=== PATIENT | female | born 1990 | race Caucasian/White ===

== ENCOUNTER 2020-07-28 05:13 | Emergency (ER) | payer OTHER, SELFPAY ==
[2020-07-28 05:19] VITALS: BP 144/69; PULSE 107; RESP 20; TEMP 36.6; O2SAT 97; BMI 26.8
[2020-07-28 05:31] VITALS: BP 118/64; PULSE 955; RESP 16; TEMP 36.7; O2SAT 96
--- NOTE | 2020-07-28 05:41 | ED_ITS ---
HPI - Asthma General Chief Complaint: Asthma Stated Complaint: Sob Time Seen by Provider: 07/28/20 05:39 Source: patient Mode of arrival: ambulatory History of Present Illness HPI Narrative: 30-year-old female with history and clinical presentation consistent with worsening shortness of breath over the past 2-3 days without associated fevers, chills, cough, chest pain, GI symptoms, or symptoms. Patient states that she is an asthmatic but cannot recall the last time that she had an asthma exacerbation. She has been using her albuterol consistently every 4-6 hours for the past 2 days, but states that she can take it any longer bec ause her chest was feeling so tight. Related Data Previous Rx's Medication Instructions Recorded atenolol 25 mg tablet 25 mg PO DAILY 90 Days #90 tab 03/04/20 prednisone 40 mg PO DAILY 4 Days #8 tab 07/28/20 Allergies Allergy/AdvReac Type Severity Reaction Status Date / Time No Known Allergies Allergy Unverified 12/21/19 16:07 Review of Systems Review of Systems: Pertinent positives and negatives as stated in HPI 10 point review systems is otherwise negative. PMFSH Past Medical History Source: nursing notes reviewed Medical History Asthma HTN (hypertension) Social History Social History Alcohol intake: current Alcohol intake frequency: a few times a week Alcohol type: hard liquor Smoking Status: Current every day smoker Use of substances other than those prescribed or required for medical reasons: No Advance Directives: No Physical Exam Vital Signs: Vital Signs: Last Vital Signs Temp 98.0 F 07/28/20 05:31 Pulse 955 H 07/28/20 05:31 Resp 16 07/28/20 05:31 BP 118/64 07/28/20 05:31 Pulse Ox 96 07/28/20 05:31 Body Mass Index 26.8 VITAL SIGNS: Reviewed. GENERAL: Well developed, well nourished, in no acute distress. HEAD: Normocephalic/atraumatic EYES: PERRLA, EOMI OROPHARYNX: no oral lesions noted, posterior pharynx clear NECK: Supple, no adenopathy LUNGS: Decreased air movement bilaterally with mild wheezing. SpO2<96> CARDIOVASCULAR: Regular rate and rhythm without noted murmurs ABDOMEN: Soft, non-tender, non-distended with bowel sounds. NEUROLOGIC: Alert and oriented x 4. Course Course Course Narrative: 30-year-old female with history and clinical presentation consistent with asthma exacerbation, will rule out pneumonia. Review of all investigations negative for any acute findings and patient received hour long albuterol treatment with Solu-Medrol and on re-evaluations states significant improvement in her breathing status. On auscultation patient now with good air movement and no wheezing noted. Patient was discharged in stable condition with a short course of steroids. MDM - Asthma Lab Data Result diagrams: 07/28/20 05:55 07/28/20 05:55 Labs: Lab Results 07/28/20 07/28/20 07/28/20 Range/Units 05:55 05:55 05:55 WBC 6.6 (4.8-10.8) X10*3/uL RBC 4.08 L (4.20-5.50) X10*6/uL Hgb 13.4 (12.0-16.0) g/dl Hct 38.4 (37-47) % MCV 94.1 (80-98) fL MCH 32.8 (27.0-33.0) pg MCHC 34.9 (31.0-35.0) g/dl RDW 12.2 (11.0-16.0) % Plt Count 232 (160-400) X10*3/uL MPV 9.7 (9.4-12.3) fL Immature Gran % (Auto) 0.2 (0.0-0.4) % Neut % (Auto) 43.1 L (45-73) % Lymph % (Auto) 37.6 (20-40) % [place] % (Auto) 7.4 (2-11) % Eos % (Auto) 10.3 H (0-4) % Baso % (Auto) 1.4 (0-2) % Lymph # (Auto) 2.5 (1.2-4.9) X10*3/uL [place] # (Auto) 0.5 (0.1-1.2) X10*3/uL Eos # (Auto) 0.7 H (0.0-0.4) X10*3/uL Baso # (Auto) 0.1 (0.0-0.2) X10*3/uL Abs Immat Gran (auto) 0.01 (0.00-0.03) X10*3/uL Absolute Neuts (auto) 2.8 (2.0-8.3) X10*3/uL Absolute Nucleated RBC 0.000 (0.0-0.012) X10*3/uL Nucleated RBC % (auto) 0.0 (0.0-0.2) /100WBC Sodium 137 (135-145) mmol/L Potassium 4.1 (3.3-5.1) mmol/L Chloride 108 (96-108) mmol/L Carbon Dioxide 21 L (22-29) mmol/L Anion Gap 12 (12-20) BUN 15 (9-16) mg/dL Creatinine 0.74 (0.5-1.4) mg/dL Estim Creat Clear Calc 96.4 Estimated GFR > 60 Random Glucose 115 (60-115) mg/dL Calcium 8.5 (8.4-10.2) mg/dL Total Bilirubin 0.4 (0.0-1.0) mg/dL AST 17 (5-31) U/L ALT 11 (0-31) U/L Alkaline Phosphatase 73 (39-117) U/L Total Protein 6.0 L (6.5-8.0) g/dL Albumin 3.9 (3.5-5.0) g/dL Urine Color Urine Appearance Urine pH (5.0-8.0) Ur Specific [place] (1.005-1.025) Urine Protein (NEG-TRACE) MG/DL Urine Glucose (UA) (NEG) MG/DL Urine Ketones (NEG) MG/DL Urine Blood (NEG) Urine Nitrite (NEG) Ur Leukocyte Esterase (NEG) Urine Test (NEGATIVE) COVID-19 (STEPHANIE) Negative (Negative) COVID-19 Clin Com See Note 07/28/20 07/28/20 Range/Units 05:55 05:55 WBC (4.8-10.8) X10*3/uL RBC (4.20-5.50) X10*6/uL Hgb (12.0-16.0) g/dl Hct (37-47) % MCV (80-98) fL MCH (27.0-33.0) pg MCHC (31.0-35.0) g/dl RDW (11.0-16.0) % Plt Count (160-400) X10*3/uL MPV (9.4-12.3) fL Immature Gran % (Auto) (0.0-0.4) % Neut % (Auto) (45-73) % Lymph % (Auto) (20-40) % [place] % (Auto) (2-11) % Eos % (Auto) (0-4) % Baso % (Auto) (0-2) % Lymph # (Auto) (1.2-4.9) X10*3/uL [place] # (Auto) (0.1-1.2) X10*3/uL Eos # (Auto) (0.0-0.4) X10*3/uL Baso # (Auto) (0.0-0.2) X10*3/uL Abs Immat Gran (auto) (0.00-0.03) X10*3/uL Absolute Neuts (auto) (2.0-8.3) X10*3/uL Absolute Nucleated RBC (0.0-0.012) X10*3/uL Nucleated RBC % (auto) (0.0-0.2) /100WBC Sodium (135-145) mmol/L Potassium (3.3-5.1) mmol/L Chloride (96-108) mmol/L Carbon Dioxide (22-29) mmol/L Anion Gap (12-20) BUN (9-16) mg/dL Creatinine (0.5-1.4) mg/dL Estim Creat Clear Calc Estimated GFR Random Glucose (60-115) mg/dL Calcium (8.4-10.2) mg/dL Total Bilirubin (0.0-1.0) mg/dL AST (5-31) U/L ALT (0-31) U/L Alkaline Phosphatase (39-117) U/L Total Protein (6.5-8.0) g/dL Albumin (3.5-5.0) g/dL Urine Color DARK YELLOW Urine Appearance CLEAR Urine pH 5.5 (5.0-8.0) Ur Specific [place] >= 1.030 H (1.005-1.025) Urine Protein NEG (NEG-TRACE) MG/DL Urine Glucose (UA) NEG (NEG) MG/DL Urine Ketones NEG (NEG) MG/DL Urine Blood NEG (NEG) Urine Nitrite NEG (NEG) Ur Leukocyte Esterase NEG (NEG) Urine Test NEGATIVE (NEGATIVE) COVID-19 (STEPHANIE) (Negative) COVID-19 Clin Com Discharge Plan Discharge Clinical Impression: Asthma with acute exacerbation Patient Disposition: Home, Self-Care Instructions: Asthma (ED) Additional Instructions: Return to the emergency room if you experience any acute worsening of your symptoms. You should follow-up with your primary care provider in the next 2-3 days for of re-evaluation Prescriptions: New prednisone 20 mg tablet 40 mg PO DAILY 4 Days Qty: 8 RF: 0 No Action atenolol 25 mg tablet 25 mg PO DAILY 90 Days Qty: 90 RF: 1
[2020-07-28] MEDS: methylPREDNISolone Sod Succ 125 MG/2 ML VIAL IVPUSH (05:54)
[2020-07-28] MEDS: Albuterol Sulfate (0.083%) 2.5 MG/3 ML VIAL.NEB 5 MG INHALE (05:59)
[2020-07-28 06:00] LABS: MANUAL DIFF FLAG NO
[2020-07-28 06:01] LABS: Basophils Absolute Auto 0.1 X10*3/uL (0.0-0.2); Basophils Percent Auto 1.4 % (0-2); Eosinophils Absolute Auto 0.7 X10*3/uL (0.0-0.4); Eosinophils Percent Auto 10.3 % (0-4); Hematocrit 38.4 % (37-47); Hemoglobin 13.4 g/dl (12.0-16.0); Imm Gran Abs Auto 0.01 X10*3/uL (0.00-0.03); Imm Gran Pct Auto 0.2 % (0.0-0.4); Lymphocytes Absolute Auto 2.5 X10*3/uL (1.2-4.9); Lymphocytes Percent Auto 37.6 % (20-40); Mean Corpuscular HGB Conc 34.9 g/dl (31.0-35.0); Mean Corpuscular Hemoglobin 32.8 pg (27.0-33.0); Mean Corpuscular Volume 94.1 fL (80-98); Mean Platelet Volume 9.7 fL (9.4-12.3); Monocytes Absolute Auto 0.5 X10*3/uL (0.1-1.2); Monocytes Percent Auto 7.4 % (2-11); Neutrophils Absolute Auto 2.8 X10*3/uL (2.0-8.3); Neutrophils Percent Auto 43.1 % (45-73); Platelet Count 232 X10*3/uL (160-400); Red Blood Count 4.08 X10*6/uL (4.20-5.50); Red Cell Distribution Width 12.2 % (11.0-16.0); White Blood Count 6.6 X10*3/uL (4.8-10.8)
[2020-07-28 06:07] LABS: Glucose Urine UA NEG (NEG); Leukocyte Esterase Urine NEG (NEG); Nitrite Urine NEG (NEG); PH 5.5 (5.0-8.0); Specific Gravity - Urine >= 1.030 (1.005-1.025); Urine Blood NEG (NEG); Urine Ketones NEG (NEG); Urine Protein NEG (NEG-TRACE)
[2020-07-28 06:12] LABS: Appearance Urine CLEAR; Color Urine DARK YELLOW
[2020-07-28 06:13] LABS: UPreg QC Valid YES; Urine Pregnancy NEGATIVE (NEGATIVE)
[2020-07-28 06:16] LABS: COVID-19 Test Negative (Negative); IDNOW Serial# 9DD0AD1C
[2020-07-28 06:29] LABS: Alanine Aminotransferase 11 U/L (0-31); Albumin Level 3.9 g/dL (3.5-5.0); Alkaline Phosphatase 73 U/L (39-117); Anion Gap 12 (12-20); Aspartate Amino Transferase 17 U/L (5-31); Bilirubin Total 0.4 mg/dL (0.0-1.0); Blood Urea Nitrogen 15 mg/dL (9-16); Calcium 8.5 mg/dL (8.4-10.2); Carbon Dioxide 21 mmol/L (22-29); Chloride 108 mmol/L (96-108); Creatinine Clr Calc Pharmacy 96.4; Estimated Glomerular Filt Rate > 60; Glucose Random 115 mg/dL (60-115); Potassium 4.1 mmol/L (3.3-5.1); Sodium 137 mmol/L (135-145)
== END 2020-07-28 07:27 | disposition home or self-care (01) ==
PROVIDERS: Emergency Provider Student in an Organized Health Care Education/Training Program; PCP Nurse Practitioner Family
DX: J45.901 Unspecified asthma with (acute) exacerbation (principal); R06.02 Shortness of breath; F17.200 Nicotine dependence, unspecified, uncomplicated; Z20.822 Contact with and (suspected) exposure to COVID-19; Z71.6 Tobacco abuse counseling; Z79.899 Other long term (current) drug therapy
CPT/HCPCS: 36415; 80053; 81003; 81025; 85025; 87635; 96374; 99284; 99285; J2930

== ENCOUNTER 2020-10-24 01:25 | Emergency (ER) | payer OTHER, SELFPAY ==
[2020-10-24 01:44] VITALS: BP 114/74; PULSE 93; RESP 16; TEMP 36.9; O2SAT 97; BMI 28.3
--- NOTE | 2020-10-24 01:44 | ED_ITS ---
HPI - URI/Sore Throat General Chief Complaint: Upper Respiratory Symptoms Stated Complaint: cough/SOB Time Seen by Provider: 10/24/20 01:44 Source: patient Mode of arrival: ambulatory Limitations: no limitations History of Present Illness HPI Narrative: Patient is smoker with history of chronic bronchitis uses inhaler been coughing for last 3 days feel congested cough is mostly dry no fever no chills feels sore throat Related Data Previous Rx's Medication Instructions Recorded prednisone 40 mg PO DAILY 4 Days #8 tab 07/28/20 atenolol 25 mg tablet 25 mg PO DAILY 90 Days #90 tab 09/16/20 amoxicillin-pot clavulanate 1 tab PO BID #20 tab 10/24/20 [Augmentin] codeine-guaifenesin 10 ml PO Q4-6H PRN #237 ml 10/24/20 prednisone 40 mg PO DAILY #10 tab 10/24/20 Allergies Allergy/AdvReac Type Severity Reaction Status Date / Time No Known Allergies Allergy Unverified 12/21/19 16:07 Review of Systems Review of Systems: Yes all other systems are reviewed and are negative [facility] Past Medical History Medical History Asthma HTN (hypertension) Social History Social History Alcohol intake: current Alcohol intake frequency: a few times a week Alcohol type: hard liquor Advance Directives: No Advance Directives Information Provided: Yes Patient : No Physical Exam Vital Signs: Vital Signs: Last Vital Signs Temp 98.5 F 10/24/20 01:44 Pulse 93 10/24/20 01:44 Resp 16 10/24/20 01:44 BP 114/74 10/24/20 01:44 Pulse Ox 97 10/24/20 01:44 Body Mass Index 28.3 Const: General: comfortable and no acute distress Orientation/consciousness: patient oriented x3 HENMT: Head: Yes normocephalic and Yes atraumatic Ears: hearing grossly normal bilaterally General nose exam: Nasal discharge present clear Face and sinus: Yes sinuses nontender Mouth: Normal oral and palatal mucosa present Teeth and gingiva: dentition normal Throat: Yes posterior oropharynx normal Eyes: General: appearance normal, both eyes and all related structures Neck: Neck: Yes normal visual inspection Resp: Effort & Inspection: normal respiratory effort Auscultation: clear to auscultation bilaterally Cardio: Palpation: normal PMI Rate: regular rate Rhythm: regular rhythm Heart sounds: S1 normal heart sound present and S2 normal heart sound present GI: Inspection: Yes normal to inspection Palpation (GI): Soft to palpation and nontender Skin: General skin exam: no rashes or lesions noted Neuro: General: patient oriented x3 Extrem: General: Yes normal to inspection and Yes no pedal edema Discharge Plan Discharge Clinical Impression: Bronchitis Patient Disposition: Home, Self-Care Instructions: Acute Bronchitis (ED) Additional Instructions: Continue to use inhaler every 4-6 hours as advised. Take antibiotics and prednisone as prescribed. Follow with PCP if not better Prescriptions: New codeine-guaifenesin 10-100 mg/5 mL liquid 10 ml PO Q4-6H PRN (Reason: cough) Qty: 237 RF: 0 amoxicillin-pot clavulanate [Augmentin] 875-125 mg tablet 1 tab PO BID Qty: 20 RF: 0 prednisone 20 mg tablet 40 mg PO DAILY Qty: 10 RF: 0 No Action atenolol 25 mg tablet 25 mg PO DAILY 90 Days Qty: 90 RF: 0 prednisone 20 mg tablet 40 mg PO DAILY 4 Days Qty: 8 RF: 0 Interventions: ED Discharge Assessment Last Done: 10/24/20 02:22 Discharge Date/Time: 10/24/20 02:23
[2020-10-24] MEDS: Amoxicillin/Potassium Clav 875 MG TABLET PO (02:16)
[2020-10-24] MEDS: Benzonatate 100 MG CAPSULE 200 MG PO (02:17)
[2020-10-24] MEDS: predniSONE 20 MG TABLET 40 MG PO (02:17)
== END 2020-10-24 02:23 | disposition home or self-care (01) ==
PROVIDERS: Emergency Provider Internal Medicine; PCP Nurse Practitioner Family
DX: J40 Bronchitis, not specified as acute or chronic (principal); I10 Essential (primary) hypertension
CPT/HCPCS: 99283

== ENCOUNTER 2021-06-10 07:58 | Outpatient (REF) | payer OTHER, SELFPAY ==
[2021-06-10 11:46] LABS: Appearance Urine CLOUDY; Color Urine YELLOW; Glucose Urine UA NEG (NEG); Leukocyte Esterase Urine NEG (NEG); Nitrite Urine NEG (NEG); UACC Culture Trigger NO; Urine Blood 2+ (NEG); Urine Ketones NEG (NEG); Urine Protein NEG (NEG-TRACE)
[2021-06-10 11:54] LABS: Alanine Aminotransferase 19 U/L (0-31); Alkaline Phosphatase 77 U/L (39-117); Anion Gap 11 (12-20); Aspartate Amino Transferase 16 U/L (5-31); Bilirubin Total 0.4 mg/dL (0.0-1.0); Blood Urea Nitrogen 10 mg/dL (9-16); Carbon Dioxide 24 mmol/L (22-29); Chloride 108 mmol/L (96-108); Cholesterol 140 mg/dL; Estimated Glomerular Filt Rate > 60; Glucose Fasting 122 mg/dL (60-99); HDL Cholesterol 48 mg/dL; LDL Cholesterol Calculated 81 mg/dl; Potassium 4.3 mmol/L (3.3-5.1); Sodium 139 mmol/L (135-145); Total Protein 6.3 g/dL (6.5-8.0); Triglycerides 57 mg/dL
[2021-06-10 11:59] LABS: Bacteria Urine 3+ /LPF; Squamous Epithelial Cell Urine 4+ /LPF
[2021-06-10 12:17] LABS: TSH reflex Free T4 2.44 uIU/mL (0.32-4.0)
[2021-06-10 12:24] LABS: HBS Num1 19.68 mIU/mL (0-7.99); HBc Num1 0.13 S/CO (0.00-0.79); Hepatitis B Core Antibody Nonreactive (Nonreactive); ~HepC Num1 0.06 S/CO (0.00-0.79); ~Hepatitis B Surface Antibody REACTIVE (Nonreactive); ~Hepatitis C Antibody Nonreactive (Nonreactive)
[2021-06-10 12:34] LABS: HBsAGNum1 0.24 S/CO (0.00-0.99); Hepatitis B Surface Antigen Negative (Negative)
[2021-06-13 08:55] LABS: Hepatitis A Antibody IgM 0.17 Index (0-0.79); ~Hepatitis A Antibody IgM Nonreactive (Nonreactive)
== END 2021-06-10 07:59 | disposition home or self-care (01) ==
LOC: HO.HMGCLDS 07:58
PROVIDERS: PCP Nurse Practitioner Family; Visit Provider Nurse Practitioner Family
DX: Z00.00 Encounter for general adult medical examination without abnormal findings (principal); Z11.59 Encounter for screening for other viral diseases
CPT/HCPCS: 36415; 80053; 80061; 81001; 84443; 86704; 86706; 86709; 86803; 87340

== ENCOUNTER 2021-08-25 08:33 | Emergency (ER) | payer OTHER, SELFPAY ==
[2021-08-25 08:37] VITALS: BP 125/83; PULSE 85; RESP 18; TEMP 36.9; O2SAT 99; BMI 25.4
[2021-08-25 08:52] LABS: Appearance Urine TURBID; Glucose Urine UA NEG (NEG); Leukocyte Esterase Urine 3+ (NEG); Nitrite Urine POS (NEG); PH 6.5 (5.0-8.0); Specific Gravity - Urine 1.025 (1.005-1.025); UACC Culture Trigger YES; Urine Blood 3+ (NEG); Urine Ketones 15 MG/DL (NEG); Urine Protein 3+ MG/DL (NEG-TRACE)
[2021-08-25 09:08] LABS: Color Urine RED
[2021-08-25 09:13] LABS: Bacteria Urine TRACE /LPF; RBC Urine TNTC /HPF (0); Squamous Epithelial Cell Urine TRACE /LPF
[2021-08-25] MEDS: Nitrofurantoin Monohyd/M-Cryst 100 MG CAPSULE PO (09:39)
--- NOTE | 2021-08-25 09:43 | ED.FEMALEGU ---
HPI - Female Genitourinary General Chief complaint: Urogenital-Female Stated complaint: uti, spotting Time Seen by Provider: 08/25/21 09:15 History of Present Illness HPI Narrative: Patient complains of 1 day of burning with urination as well as bloody urine, she says it is not vaginal bleeding but blood in the urine, there is no back pain no abdominal pain no fever no nausea vomiting or diarrhea Related Data Home Medications Medication Instructions Recorded Confirmed dextroamphetamine-amphetamine 20 20 mg PO BID 04/22/21 04/22/21 mg tablet (Adderall) Previous Rx's Medication Instructions Recorded mupirocin 2 % topical ointment 1 appl TOPICAL BID 30 Days #22 g 04/22/21 atenolol 25 mg tablet 25 mg PO DAILY 90 Days #90 tab 08/25/21 nitrofurantoin 100 mg PO Q12H 5 Days #10 cap 08/25/21 monohydrate/macrocrystals 100 mg capsule (Macrobid) phenazopyridine 200 mg tablet 200 mg PO TID PRN #6 tab 08/25/21 (Pyridium) Allergies Allergy/AdvReac Type Severity Reaction Status Date / Time No Known Allergies Allergy Verified 04/22/21 13:14 Review of Systems Review of Systems: No fever no chills no dizziness no weakness no chest pain no shortness of breath no abdominal pain no nausea no vomiting no flank pain or back pain no leg swelling no skin rash, no bleeding from mouth or gums, no blood in the stool Yes all other systems are reviewed and are negative PMFSH Past Medical History Source: nursing notes reviewed Medical History Asthma HTN (hypertension) Social History Social History Housing: Apartment Alcohol intake: current Alcohol intake frequency: a few times a week Alcohol type: hard liquor Patient Tobacco Use Status: Current everyday Tobacco user Tobacco use type: Cigarette Cigarette Packs Per Day: 0.3 Cigarettes Per Day: 3 Years Smoked: 15 e-Cigarette/Vaping Use: Currently Using Advance Directives: No Advance Directives Information Provided: No service: No Current occupational status: employed Current occupation: [employer] Cognitive needs: No Hearing needs: No Vision needs: No Physical Exam Vital Signs: Vital Signs: Last Vital Signs Temp 98.4 F 08/25/21 08:37 Pulse 85 08/25/21 08:37 Resp 18 08/25/21 08:37 BP 125/83 08/25/21 08:37 Pulse Ox 99 08/25/21 08:37 BMI result Body Mass Index 25.4 General appearance comfortable no distress Eyes anicteric no pallor The neck is supple Respiratory no distress Abdomen is soft nontender The back there is no CVA tenderness or flank tenderness Extremities there is no pedal edema Skin no rash no petechiae no purpura Course Course Course Narrative: Patient with dysuria associated with blood in the urine had a UA which was positive for nitrites and leukocyte esterase and bacteria so likely UTI She was concerned about the volume of blood so blood work was done and there was no evidence of anemia, platelets were normal renal function was normal and well-appearing patient was discharged with diagnosis of UTI MDM - Female Genitourinary Lab Data Attestation: I reviewed the patient's lab results. Result diagrams: 08/25/21 10:00 08/25/21 10:00 Labs: Lab Results 08/25/21 08/25/21 08/25/21 Range/Units 08:45 09:41 10:00 WBC 14.8 H (4.8-10.8) X10*3/uL RBC 4.49 (4.20-5.50) X10*6/uL Hgb 15.3 (12.0-16.0) g/dl Hct 44.1 (37.0-47.0) % MCV 98.2 H (80.0-98.0) fL MCH 34.1 H (27.0-33.0) pg MCHC 34.7 (31.0-35.0) g/dl RDW 12.6 (11.0-16.0) % Plt Count 269 (160-400) X10*3/uL MPV 10.2 (9.4-12.3) fL Immature Gran % (Auto) 0.3 (0.0-0.4) % Neut % (Auto) 78.8 H (45-73) % Lymph % (Auto) 12.7 L (20-40) % [place] % (Auto) 6.6 (2-11) % Eos % (Auto) 1.2 (0-4) % Baso % (Auto) 0.4 (0-2) % Lymph # (Auto) 1.9 (1.2-4.9) X10*3/uL [place] # (Auto) 1.0 (0.1-1.2) X10*3/uL Eos # (Auto) 0.2 (0.0-0.4) X10*3/uL Baso # (Auto) 0.1 (0.0-0.2) X10*3/uL Abs Immat Gran (auto) 0.05 H (0.00-0.03) X10*3/uL Absolute Neuts (auto) 11.6 H (2.0-8.3) x10*3/uL Absolute Nucleated RBC 0.000 (0.0-0.012) X10*3/uL Nucleated RBC % (auto) 0.0 (0.0-0.2) /100WBC PT (9.9-13.0) SEC INR (0.9-1.1) Sodium (135-145) mmol/L Potassium (3.3-5.1) mmol/L Chloride (96-108) mmol/L Carbon Dioxide (22-29) mmol/L Anion Gap (12-20) BUN (9-16) mg/dL Creatinine (0.5-1.4) mg/dL Estim Creat Clear Calc Estimated GFR Random Glucose (60-115) mg/dL Calcium (8.4-10.2) mg/dL Urine Color RED A Urine Appearance TURBID Urine pH 6.5 (5.0-8.0) Ur Specific [place] 1.025 (1.005-1.025) Urine Protein 3+ H (NEG-TRACE) MG/DL Urine Glucose (UA) NEG (NEG) MG/DL Urine Ketones 15 (NEG) MG/DL Urine Blood 3+ H (NEG) Urine Nitrite POS H (NEG) Ur Leukocyte Esterase 3+ H (NEG) Urine RBC TNTC H (0) /HPF Urine WBC 15-29 H (0-4) /HPF Ur Squamous Epith Cells TRACE /LPF Urine Bacteria TRACE /LPF Urine Test NEGATIVE (NEGATIVE) 08/25/21 08/25/21 Range/Units 10:00 10:00 WBC (4.8-10.8) X10*3/uL RBC (4.20-5.50) X10*6/uL Hgb (12.0-16.0) g/dl Hct (37.0-47.0) % MCV (80.0-98.0) fL MCH (27.0-33.0) pg MCHC (31.0-35.0) g/dl RDW (11.0-16.0) % Plt Count (160-400) X10*3/uL MPV (9.4-12.3) fL Immature Gran % (Auto) (0.0-0.4) % Neut % (Auto) (45-73) % Lymph % (Auto) (20-40) % [place] % (Auto) (2-11) % Eos % (Auto) (0-4) % Baso % (Auto) (0-2) % Lymph # (Auto) (1.2-4.9) X10*3/uL [place] # (Auto) (0.1-1.2) X10*3/uL Eos # (Auto) (0.0-0.4) X10*3/uL Baso # (Auto) (0.0-0.2) X10*3/uL Abs Immat Gran (auto) (0.00-0.03) X10*3/uL Absolute Neuts (auto) (2.0-8.3) x10*3/uL Absolute Nucleated RBC (0.0-0.012) X10*3/uL Nucleated RBC % (auto) (0.0-0.2) /100WBC PT 12.8 (9.9-13.0) SEC INR 1.1 (0.9-1.1) Sodium 138 (135-145) mmol/L Potassium 4.5 (3.3-5.1) mmol/L Chloride 106 (96-108) mmol/L Carbon Dioxide 26 (22-29) mmol/L Anion Gap 11 L (12-20) BUN 9 (9-16) mg/dL Creatinine 0.78 (0.5-1.4) mg/dL Estim Creat Clear Calc 84.7 Estimated GFR > 60 Random Glucose 115 (60-115) mg/dL Calcium 9.6 D (8.4-10.2) mg/dL Urine Color Urine Appearance Urine pH (5.0-8.0) Ur Specific Bryant (1.005-1.025) Urine Protein (NEG-TRACE) MG/DL Urine Glucose (UA) (NEG) MG/DL Urine Ketones (NEG) MG/DL Urine Blood (NEG) Urine Nitrite (NEG) Ur Leukocyte Esterase (NEG) Urine RBC (0) /HPF Urine WBC (0-4) /HPF Ur Squamous Epith Cells /LPF Urine Bacteria /LPF Urine Test (NEGATIVE) Discharge Plan Discharge Clinical Impression: Urinary tract infection Patient Disposition: Home, Self-Care Additional Instructions: The blood in your urine is most likely from infection, are urinalysis did show a urinary tract infection The other blood tests showed you are not anemic and did not show any abnormality in her kidney function, no evidence of any problem clotting Take antibiotic as directed drink plenty of water Return any time for vomiting fever abdominal pain flank pain or back pain any worse condition or any concerns Prescriptions: New nitrofurantoin monohyd/m-cryst [Macrobid] 100 mg capsule 100 mg PO Q12H 5 Days Qty: 10 0RF Rx Instructions: must administer with a meal/food phenazopyridine [Pyridium] 200 mg tablet 200 mg PO TID PRN (Reason: Pain with urination) Qty: 6 0RF No Action atenolol 25 mg tablet 25 mg PO DAILY 90 Days Qty: 90 0RF dextroamphetamine-amphetamine [Adderall] 20 mg tablet 20 mg PO BID 0RF Rx Instructions: administer doses at least 4-6 hours apart mupirocin 2 % ointment 1 appl topical BID 30 Days Qty: 22 3RF
[2021-08-25 09:57] LABS: UPreg QC Valid YES; Urine Pregnancy NEGATIVE (NEGATIVE)
[2021-08-25 10:06] LABS: MANUAL DIFF FLAG NO
[2021-08-25 10:11] LABS: Basophils Absolute Auto 0.1 X10*3/uL (0.0-0.2); Basophils Percent Auto 0.4 % (0-2); Eosinophils Absolute Auto 0.2 X10*3/uL (0.0-0.4); Eosinophils Percent Auto 1.2 % (0-4); Hematocrit 44.1 % (37.0-47.0); Hemoglobin 15.3 g/dl (12.0-16.0); Imm Gran Abs Auto 0.05 X10*3/uL (0.00-0.03); Imm Gran Pct Auto 0.3 % (0.0-0.4); Lymphocytes Absolute Auto 1.9 X10*3/uL (1.2-4.9); Lymphocytes Percent Auto 12.7 % (20-40); Mean Corpuscular HGB Conc 34.7 g/dl (31.0-35.0); Mean Corpuscular Hemoglobin 34.1 pg (27.0-33.0); Mean Corpuscular Volume 98.2 fL (80.0-98.0); Mean Platelet Volume 10.2 fL (9.4-12.3); Monocytes Percent Auto 6.6 % (2-11); Neutrophils Absolute Auto 11.6 x10*3/uL (2.0-8.3); Neutrophils Percent Auto 78.8 % (45-73); Platelet Count 269 X10*3/uL (160-400); Red Blood Count 4.49 X10*6/uL (4.20-5.50); Red Cell Distribution Width 12.6 % (11.0-16.0); White Blood Count 14.8 X10*3/uL (4.8-10.8)
[2021-08-25 10:17] LABS: INTERNATIONAL NORM RATIO 1.1 (0.9-1.1); Prothrombin Time 12.8 SEC (9.9-13.0)
[2021-08-25 10:19] LABS: Anion Gap 11 (12-20); Blood Urea Nitrogen 9 mg/dL (9-16); Calcium 9.6 mg/dL (8.4-10.2); Carbon Dioxide 26 mmol/L (22-29); Chloride 106 mmol/L (96-108); Creatinine Clr Calc Pharmacy 84.7; Estimated Glomerular Filt Rate > 60; Glucose Random 115 mg/dL (60-115); Potassium 4.5 mmol/L (3.3-5.1); Sodium 138 mmol/L (135-145)
== END 2021-08-25 10:42 | disposition home or self-care (01) ==
PROVIDERS: Physician Assistant Medical; Emergency Provider Emergency Medicine; PCP Nurse Practitioner Family
DX: N39.0 Urinary tract infection, site not specified (principal); F17.200 Nicotine dependence, unspecified, uncomplicated
CPT/HCPCS: 36415; 80048; 81001; 81003; 81025; 85025; 85610; 87086; 87088; 87186; 87491; 87591; 99283

== ENCOUNTER 2021-09-16 10:04 | Outpatient (REF) | payer OTHER, SELFPAY ==
[2021-09-16 12:17] LABS: Appearance Urine HAZY; Color Urine YELLOW; Glucose Urine UA NEG (NEG); Leukocyte Esterase Urine NEG (NEG); Nitrite Urine NEG (NEG); Urine Blood NEG (NEG); Urine Ketones NEG (NEG); Urine Protein NEG (NEG-TRACE)
== END 2021-09-16 10:05 | disposition home or self-care (01) ==
LOC: HO.HMGCLDS 10:04
PROVIDERS: PCP Nurse Practitioner Family; Visit Provider Nurse Practitioner Family
DX: R30.0 Dysuria (principal)
CPT/HCPCS: 81003

== ENCOUNTER 2021-09-22 14:12 | Outpatient (REF) | payer OTHER, SELFPAY ==
--- NOTE | ~2021-09-22 | MM_ITS ---
EXAMINATION: MM DIAGNOSTIC DIGITAL BREAST TOMOSYNTHESIS, BILATERAL US DIAGNOSTIC ULTRASOUND BREAST, RIGHT CLINICAL INFORMATION: Palpable area noted by patient mid upper outer quadrant, marble sized for several weeks. No prior breast imaging. No known family history breast cancer. Age 31. No prior breast imaging. TC score 13%. COMPARISON: None (current study represents initial baseline exam). TECHNIQUE: Digital breast tomosynthesis is performed in both the craniocaudal and mediolateral oblique views along with computer-aided detection (CAD). Synthesized 2D images are generated from the tomosynthesis. Ultrasound right breast is targeted to the area of clinical concern using grayscale imaging and color Doppler without and with harmonics. Patient is able to point to area of concern at time of imaging. FINDINGS: The breasts are heterogeneously dense, which may obscure small masses (ACR BI-RADS breast composition Category c). There are no significant masses, abnormal calcifications, or other abnormalities. The axilla and skin contours are unremarkable. No mammographic correlate for patient's symptoms. Ultrasound demonstrates no cystic or solid mass, architectural abnormality, or focal duct ectasia. No skin thickening or edema tracking in soft tissue planes. Results are discussed with the patient at time of visit. Patient should be managed based on the clinical impression. If clinically indicated, further evaluation may be considered with surgical consult. Decision to proceed with biopsy should be based on clinical grounds and degree of clinical concern. MM/MM tomosynthesis diagnostic BI IMPRESSION: -No mammographic evidence of malignancy. -Unremarkable right breast ultrasound. ASSESSMENT: BI-RADS 1: Negative RECOMMENDATION: 1. Patient should be managed based on the clinical impression. If clinically indicated, further evaluation may be considered with surgical consult. Decision to proceed with biopsy should be based on clinical grounds and degree of clinical concern. 2. Otherwise, routine annual screening mammography, beginning age 40, or earlier as clinical risk factors warrant. This patient's information was entered into a reminder system with a target due date for their next mammogram.
== END 2021-09-22 14:13 | disposition home or self-care (01) ==
LOC: HO.MAMMO 14:12
PROVIDERS: Visit Provider Nurse Practitioner Family
DX: N63.11 Unspecified lump in the right breast, upper outer quadrant (principal)
CPT/HCPCS: 76642; 77062; 77066

== ENCOUNTER 2022-02-20 11:43 | Outpatient (REF) | payer OTHER, SELFPAY ==
--- NOTE | ~2022-02-20 | MR_ITS ---
EXAMINATION: MR BREAST WITHOUT AND WITH CONTRAST, BILATERAL CLINICAL INFORMATION: Palpable right breast mass, upper outer quadrant. Normal mammogram and ultrasound. COMPARISON: Bilateral mammogram and diagnostic right breast ultrasound 09/22/2021. TECHNIQUE: Imaging was performed with a dedicated breast coil. Prior to the administration of contrast, bilateral axial T1 and bilateral axial T2 weighted sequences were obtained. After the uneventful administration of?6 mL of Gadavist, dynamic contrast-enhanced VIBRANT series through the breasts in the axial plane were performed. Subtracted images were performed and reviewed. A delayed sagittal sequence through both breasts was acquired. Additionally, CAD post-processing, including maximum intensity projections, 3-D reconstructions and kinetic analysis, were performed an independent workstation and reviewed by the interpreting radiologist is a portion of this exam. FINDINGS: The patient's extremely dense fibroglandular tissue demonstrates mild and heterogeneous background enhancement bilaterally, greater on the right than the left. LEFT BREAST: There is an area of clumped nodular enhancement in the 7-8 o'clock position, posterior depth, 6 cm from the nipple (subtracted sequence image 75 of 102) measuring 0.9 cm in diameter, this demonstrates mixed enhancement kinetics with areas of both plateau and progressive enhancement. In review of prior mammogram, there may be grouped amorphous calcifications in this area. There is focal parenchymal dur-upzf-wzhc enhancement in the superior breast which is similar, although less prominent than findings on the right. There is no duct dilatation or ductal-type enhancement. No skin thickening or nipple retraction is seen. RIGHT BREAST: There is prominent ivf-abib-bemg enhancement in the superior breast, this is largely progressive in nature and slightly more prominent than findings on the left. Additionally, in the retroareolar plane, posterior depth (subtracted sequence image 54 of 102), there is T2 intermediate signal [id number] enhancement measuring 1.1 cm, this demonstrates areas of plateau-type kinetics and is indeterminate in appearance. There is no skin thickening, duct dilatation or nipple retraction present. There is no suspicious internal mammary chain or axillary adenopathy. Limited views of the chest and abdomen are unremarkable. MR/MR breast BI wo/w con IMPRESSION: Clumped nodular enhancement in the left breast, lower inner quadrant with possible mammographic correlate. Lpu-dykc-[id number] focal enhancement in the retroareolar plane of the right breast, posterior depth measuring 1.1 cm with type II enhancement kinetics is indeterminate. ASSESSMENT: LEFT BREAST: BI-RADS 4, suspicious. RIGHT BREAST: BI-RADS 4, suspicious. RECOMMENDATIONS: Diagnostic imaging of the left breast with 2-D spot magnification views for area of possible grouped calcifications in the lower inner quadrant. If there is a mammographic correlate, stereotactic biopsy may be performed. MR-guided biopsy of right breast enhancement in the retroareolar plane. As the referring provider's office was closed on 02/27/22, results were called to CHEPE Juarez at Dr. Soriano's office on 03/02/22.
== END 2022-02-20 11:44 | disposition home or self-care (01) ==
LOC: HO.MRI 11:43
PROVIDERS: Visit Provider Surgery
DX: R92.2 Inconclusive mammogram (principal); N63.10 Unspecified lump in the right breast, unspecified quadrant
CPT/HCPCS: 77049; A9585

== ENCOUNTER 2022-03-06 07:18 | Outpatient (REF) | payer OTHER, SELFPAY ==
--- NOTE | ~2022-03-06 | MM_ITS ---
EXAMINATION: MM DIAGNOSTIC DIGITAL BREAST TOMOSYNTHESIS, LEFT Targeted left breast ultrasound. CLINICAL INFORMATION: Left breast MRI abnormality inferior medial aspect deep left breast. The lifetime risk of breast cancer based on the Tyrer-Cuzick Model is 12.8%. COMPARISON: Mammography: MRI of February 20, 2022 and mammography of September 22, 2021 TECHNIQUE: Digital breast tomosynthesis is performed in both the craniocaudal and mediolateral oblique views along with computer-aided detection (CAD). Synthesized 2D images are generated from the tomosynthesis. Spot compression views of the left breast about the inferior medial aspect. Targeted left breast ultrasound. FINDINGS: The breasts are extremely dense, which lowers the sensitivity of mammography (ACR BI-RADS breast composition Category d). There are some scattered calcifications seen about the upper outer aspect of the left breast with no suspicious grouping of calcifications about the inferior medial aspect. No definite dominant mass is appreciated. Due to the very dense breast parenchyma targeted left breast ultrasound was performed to see if there is a MRI correlate. No suspicious cystic or solid masses identified. No region of abnormal distal sound shadowing is seen. Recommend performing left breast biopsy with MRI modality which is where the suspicious region was identified. Results are discussed with the patient at time of visit. MM/MM tomosynthesis diagnostic LT IMPRESSION: No suspicious mammographic or ultrasound findings about the inferior medial aspect of the left breast were MRI abnormality was seen. Recommend left breast biopsy with MRI guidance. ASSESSMENT: BI-RADS 4: Suspicious RECOMMENDATION: MRI guided biopsy left breast. Above report was called to Kena at referring provider's office.
== END 2022-03-06 07:19 | disposition home or self-care (01) ==
LOC: HO.MAMMO 07:18
PROVIDERS: PCP Nurse Practitioner Family; Visit Provider Surgery
DX: R93.5 Abnormal findings on diagnostic imaging of other abdominal regions, including retroperitoneum (principal)
CPT/HCPCS: 76642; 77061; 77065

== ENCOUNTER 2022-03-23 07:23 | Outpatient (REF) | payer OTHER, SELFPAY ==
--- NOTE | ~2022-03-23 | MR_ITS ---
EXAMINATION: MR GUIDED VACUUM-ASSISTED CORE BIOPSY BREAST, RIGHT MR GUIDED VACUUM-ASSISTED CORE BIOPSY BREAST, LEFT MM DIGITAL MAMMOGRAPHY POST BIOPSY, BILATERAL CLINICAL INFORMATION: 32-year-old with MR breasts with bilateral enhancement, left posterior lower inner and right posterior central upper outer. TC score 13%. No known family history breast cancer. COMPARISON: Bilateral breast MR 02/20/2022, mammography 03/06/2022, 09/22/2021, left breast ultrasound 03/06/2022, right breast ultrasound 09/22/2021. TECHNIQUE/PROCEDURE: Informed consent was obtained from the patient after discussion of the benefits, risks, and alternatives to biopsy today. Patient appeared to understand. Gave opportunity for questions. Patient signed consent form. Biopsy is performed under MRI guidance using breast surface coil. Imaging is performed without and with use of 6 mL Gadavist gadolinium contrast. [employer] introducer localization system is used with grid. LEFT: LESION: Short enhancement posterior inferior medial breast. LOCAL ANESTHESIA: 10 mL carbonated 1% lidocaine; 11 mL 1% lidocaine with epinephrine. NEEDLE: SurGreen A Atec 9-gauge vacuum assisted petite core biopsy device APPROACH: Lateral medial. CORES: 10. CLIP: TriMark barbell/spool shaped. RIGHT Separate new biopsy supplies used for second site. LESION: Non-mass enhancement posterior central upper outer. LOCAL ANESTHESIA: : 10 mL carbonated 1% lidocaine; 16 mL 1% lidocaine with epinephrine. NEEDLE: Suros Atec 9-gauge vacuum assisted core biopsy device. APPROACH: Lateral medial. CORES: 10. CLIP: TriMark barbell/spool shaped. POSTPROCEDURE UNILATERAL DIGITAL MAMMOGRAM: Mammography is performed using digital mammography in bilateral CC and bilateral ML views. The breasts are heterogeneously dense, which may obscure small masses (ACR BI-RADS breast composition Category c). The clip markers are in position. No gross hematoma. The patient tolerated the procedure well. No immediate complications. Home instructions reviewed with the patient. Final pathology results are pending. Procedure results called to medical director/head team physician (Kenia) for Dr. Isaacs on 01/21/2022. MR/MR guided breast biopsy LT IMPRESSION: 1. Status post MRI guided vacuum-assisted core biopsy bilateral breast with clip placement. 2. Final pathology results pending. An addendum report will be issued.
--- NOTE | ~2022-03-23 | MM_ITS ---
Diagnostic bilateral mammography is described in a single combined report along with the bilateral MR guided breast biopsy under accession number [id number].
--- NOTE | ~2022-03-23 | MR_ITS ---
EXAMINATION: MR GUIDED VACUUM-ASSISTED CORE BIOPSY BREAST, RIGHT MR GUIDED VACUUM-ASSISTED CORE BIOPSY BREAST, LEFT MM DIGITAL MAMMOGRAPHY POST BIOPSY, BILATERAL CLINICAL INFORMATION: 32-year-old with MR breasts with bilateral enhancement, left posterior lower inner and right posterior central upper outer. TC score 13%. No known family history breast cancer. COMPARISON: Bilateral breast MR 02/20/2022, mammography 03/06/2022, 09/22/2021, left breast ultrasound 03/06/2022, right breast ultrasound 09/22/2021. TECHNIQUE/PROCEDURE: Informed consent was obtained from the patient after discussion of the benefits, risks, and alternatives to biopsy today. Patient appeared to understand. Gave opportunity for questions. Patient signed consent form. Biopsy is performed under MRI guidance using breast surface coil. Imaging is performed without and with use of 6 mL Gadavist gadolinium contrast. Encentuate introducer localization system is used with grid. LEFT: LESION: Short enhancement posterior inferior medial breast. LOCAL ANESTHESIA: 10 mL carbonated 1% lidocaine; 11 mL 1% lidocaine with epinephrine. NEEDLE: Suros Atec 9-gauge vacuum assisted petite core biopsy device APPROACH: Lateral medial. CORES: 10. CLIP: TriMark barbell/spool shaped. RIGHT Separate new biopsy supplies used for second site. LESION: Non-mass enhancement posterior central upper outer. LOCAL ANESTHESIA: : 10 mL carbonated 1% lidocaine; 16 mL 1% lidocaine with epinephrine. NEEDLE: Suros Atec 9-gauge vacuum assisted core biopsy device. APPROACH: Lateral medial. CORES: 10. CLIP: TriMark barbell/spool shaped. POSTPROCEDURE UNILATERAL DIGITAL MAMMOGRAM: Mammography is performed using digital mammography in bilateral CC and bilateral ML views. The breasts are heterogeneously dense, which may obscure small masses (ACR BI-RADS breast composition Category c). The clip markers are in position. No gross hematoma. The patient tolerated the procedure well. No immediate complications. Home instructions reviewed with the patient. Final pathology results are pending. Procedure results called to director of medical education (Kenia) for Dr. Isaacs on 01/21/2022. MR/MR guided breast biopsy RT IMPRESSION: 1. Status post MRI guided vacuum-assisted core biopsy bilateral breast with clip placement. 2. Final pathology results pending. An addendum report will be issued.
[2022-03-23] MEDS: Lidocaine HCl 1% PF/Epi 1:200,000 30 ML VIAL SUBCUT (10:21)
[2022-03-23] MEDS: Lidocaine HCl 1 % MPF 30 ML VIAL SUBCUT (10:24)
[2022-03-23] MEDS: Sodium Bicarbonate 8.4% 50 MEQ in Dextrose 5 % 950 ML IV (10:26)
[2022-03-23] MEDS: Sodium Bicarbonate 8.4% 50 MEQ/50 ML VIAL SUBCUT (11:00)
== END 2022-03-23 07:24 | disposition home or self-care (01) ==
LOC: HO.MRI 07:23
PROVIDERS: Visit Provider Surgery
DX: R93.5 Abnormal findings on diagnostic imaging of other abdominal regions, including retroperitoneum (principal); R92.8 Other abnormal and inconclusive findings on diagnostic imaging of breast
CPT/HCPCS: 19085; 77062; 77066; 88305; A4648; A9585

== ENCOUNTER 2022-03-23 16:07 | Outpatient (REF) | payer OTHER, SELFPAY | END 2022-03-23 16:08 | disposition home or self-care (01) | LOC: HO.LAB 16:07 | PROVIDERS: Visit Provider Internal Medicine | DX: R30.0 Dysuria (principal); N39.0 Urinary tract infection, site not specified | CPT/HCPCS: 87086; 87088; 87186 ==

== ENCOUNTER → 2022-03-31 08:39 | Outpatient (BNVA) | payer OTHER, SELFPAY | PROVIDERS: PCP Nurse Practitioner Family; Visit Provider Surgery | DX: R92.8 Other abnormal and inconclusive findings on diagnostic imaging of breast (principal) ==

== ENCOUNTER 2023-05-10 10:12 | Outpatient (AMB) | payer OTHER, SELFPAY ==
[2023-05-10 10:47] VITALS: BP 130/88; PULSE 92; O2SAT 99; BMI 33.3
--- NOTE | 2023-05-10 10:47 | MHC.PC.OV ---
Vital Signs 05/10/23 10:47 Height 5 ft 1 in Weight 176 lb 6 oz BMI 33.3 BP 130/88 Blood Pressure Location Lt brachial Position Sitting Pulse 92 Pulse Source Pulse Oximeter Pulse Oximetry (%) 99 Oxygen Delivery Method Room Air Intake Visit Reasons: PE Intake Note: Pt is here for her Annual PE Pt's Last Pap over 1 year ago Is last menstrual period known: Yes Last menstrual period: 05/12/23 Allergies No Known Allergies Allergy (Verified 05/10/23 10:51) Medication List - Last Reconciled 05/10/23 by DYLAN Contreras albuterol sulfate 90 mcg/actuation (ProAir HFA) 1 puff inhalation QID PRN dextroamphetamine-amphetamine 20 mg (Adderall) 20 mg PO BID labetalol 100 mg PO BID mupirocin 2% 1 appl topical BID 30 days Tobacco use date assessed: 05/10/23 Dental Screening Dental Screen Date: 05/10/23 Did you have a dental visit in the last 12 months?: No Did you have a dental problem in the last 6 months where you did not have access to dental care?: No Was dental information given to patient?: Patient has dentist HPI PE HPI Details Pt is here for a PE. Will order labs. 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 Pt just had a baby approximately 4 months ago. She will call about her breast MRI if she does not hear anything in the next month. [facility] Medical History Asthma HTN (hypertension) Surgical History History of tonsillectomy Family History Brother Substance use disorder Mental health disorder Maternal Uncle Substance use disorder Mental health disorder Paternal Uncle Substance use disorder Mental health disorder Father Substance use disorder Mental health disorder Prostate cancer Family/Other Mental health disorder Substance use disorder Social History Housing: Apartment Alcohol intake: current Alcohol intake frequency: a few times a week Alcohol type: hard liquor Patient Tobacco Use Status: Former Tobacco user Quit Date: 04/27 Tobacco use type: Cigarette Years Smoked: 15 e-Cigarette/Vaping Use: Currently Using Second Hand Smoke Exposure: No service: No Current occupational status: employed 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 1. Little interest or pleasure in doing things: not at all 2. Feeling down, depressed, or hopeless: not at all 3. Trouble falling or staying asleep, or sleeping too much: several days 4. Feeling tired or having little energy: several days 5. Poor appetite or overeating: not at all 6. Feeling bad about yourself - or that you are a failure or have let yourself or your family down: not at all 7. Trouble concentrating on things, such as reading the newspaper or watching television: several days 8. Moving or speaking so slowly that other people could have noticed. Or the opposite - being so fidgety or restless that you have been moving around a lot more than usual: not at all 9. Thoughts that you would be better off or of hurting yourself in some way: not at all Total score: 3 Depression Screening Interpretation: Negative Depression Screening Done: Yes 37847 - PHQ-9 Billing: Yes Source: Developed by Drs. Jorge Mcgowan, Patricia Garcia, Troy Morfin and colleagues, with an educational shaista from [employer]. Thrive Questionnaire Date Thrive assessed: 05/10/23 I am a: Patient What is your living situation today?: I have a steady place to live Within the past 12 months, did the food you bought not last and you didn't have the money to get more?: Never true Within the past 12 months, did you worry whether your food would run out before you got money to buy more?: Never true Do you have trouble paying for medicines?: No Do you have trouble getting transportation to medical appointments?: No Do you have trouble paying your heating and electricity bill?: No Do you have trouble taking care of your child, family member or friend?: No Do you have trouble with day-to-day activities such as bathing, preparing meals, shopping, managing finances, etc.?: No Are you currently unemployed and looking for a job?: No Are you interested in more education?: No Currently or been in a relationship where the following occur: no concerns reported THRIVE Score: 0 AUDIT C Alcohol Use Questionnaire (AUDIT-C) 1. How often do you have a drink containing alcohol?: 4 or more times a week 2. How many drinks containing alcohol do you have on a typical day when you are drinking?: 1 or 2 3. How often do you have six or more drinks on one occasion?: Never Total Score: 4 CE-7 AMB Questionnaire CE-7 Date CE - 7 assessed: 05/10/23 Feeling nervous, anxious, or on edge: 2 = More than half the days Not being able to stop or control worryin = More than half the days Worrying too much about different things: 2 = More than half the days Trouble relaxin = Several days Being so restless that it is hard to sit still: 1 = Several days Becoming easily annoyed or irritable: 1 = Several days Feeling afraid as if something awful might happen: 1 = Several days Total CE-7 score (0-4 normal; 5-9 mild; 10-14 moderate; 15-21 severe): 10 Source: Developed by Drs. Jorge Mcgowan, Patricia Garcia, Troy Morfin and colleagues, with an educational shaista from [employer]. CE-7 Assessment Billing CE-7 Assessment Tool: CE-7 Assessment 13038 Review of Systems Const Denies chills and Denies fever(s) Eyes Denies blurry vision ENT Denies vertigo, Denies dizziness and Denies sore throat Card Denies chest pain at rest, Denies chest pain with activity, Denies diaphoresis, Denies dyspnea and Denies dyspnea on exertion Resp Denies cough, Denies dyspnea, Denies dyspnea on exertion and Denies wheezing GI Denies abdominal pain, Denies melena, Denies hematochezia, Denies constipation, Denies diarrhea and Denies loose stools Denies hematuria Musc Denies numbness and Denies tingling Skin/Breast Denies lesions Neuro Denies vertigo, Denies dizziness, Denies numbness and Denies tingling Psych Denies anxiety, Denies depression, Denies homicidal ideation, Denies suicidal ideation and Denies other (substance abuse) Aller/Immun Denies wheezing Physical exam (Primary Care) Vital Signs: Last Vital Signs Pulse 92 05/10/23 10:47 BP 130/88 05/10/23 10:47 Pulse Ox 99 05/10/23 10:47 Oxygen Delivery Method Room Air 05/10/23 10:47 BMI result Body Mass Index 33.3 Tobacco/Smoking Status: Tobacco use Status Tobacco use date assessed 05/10/23 05/10/23 10:53 Patient Tobacco Use Status Former Tobacco user 05/10/23 10:47 Tobacco use type Cigarette 05/10/23 10:47 e-Cigarette/Vaping Use Currently Using 05/10/23 10:47 PHQ-9: PHQ-9 Score PHQ-9: Total score 3 05/10/23 11:14 Depression Screening Interpretation: Negative Thrive Assessment: Date of Thrive Assessment Date Thrive assessed 05/10/23 05/10/23 11:14 Currently or been in a relationship where the following occur: no concerns reported Const General: cooperative Nutritional Appearance: well nourished Orientation/consciousness: patient oriented x3 HENMT Head: Yes normal to inspection, Yes normocephalic and Yes atraumatic Ears: TM's normal bilaterally Eyes General: appearance normal, both eyes and all related structures Alignment and Position: alignment normal and position normal Neck Neck: Yes normal visual inspection and Yes no lymphadenopathy Thyroid: Thyroid normal Resp Effort & Inspection: normal respiratory effort Auscultation: clear to auscultation bilaterally Cardio Rate: regular rate Rhythm: regular rhythm Heart sounds: S1 normal heart sound present, S2 normal heart sound present and no murmurs GI Palpation (GI): Soft to palpation and nontender Auscultation: normal bowel sounds Skin Rashes: no rashes Neuro General: patient oriented x3, moves all extremities, no focal motor deficits and deep tendon reflexes 2+ bilaterally Romberg Test: Negative Psych Appearance: grossly normal Mental Status: mental status grossly normal Speech and movement: Normal speech and movement present Affect: normal affect Attitude: cooperative Thought process: Normal thought process present Thought content: Normal thought content present Insight: Good insight present (Psych) Judgement: Good judgement present (Psych) Assessment and Plan Assessment & Plan (1) Physical exam: Code(s): Z00.00 - Encounter for general adult medical examination without abnormal findings Plan: Labs ordered Plan The patient agreed to the use of a medical scientist for this encounter. Scribed for DYLAN Qureshi by Alia Joe medical scientist, on 05/10/2023 at 10:55 EST. Orders: Orders Complete Blood Count Auto Diff Today Z00.00 - Encounter for general adult medical examination without abnormal findings Comprehensive [place]. Panel Fast Today Z00.00 - Encounter for general adult medical examination without abnormal findings TSH reflex Free T4 Today Z00.00 - Encounter for general adult medical examination without abnormal findings UA CC w/rflx Micro + Cult Today Z00.00 - Encounter for general adult medical examination without abnormal findings Lipid Panel Today Z00.00 - Encounter for general adult medical examination without abnormal findings Coding Level of Care Code Est Pt Prev Care 18-39y(01464) Diagnoses Physical exam Z00.00 Additional Codes CE-7 Assessment Billing - CE-7 Assessment Tool: CE-7 Assessment 24265 ([id number])
== END 2023-05-10 11:37 | disposition home or self-care (01) ==
PROVIDERS: PCP Nurse Practitioner Family; Visit Provider Nurse Practitioner Family
DX: Z00.00 Encounter for general adult medical examination without abnormal findings (principal)
CPT/HCPCS: 99395

== ENCOUNTER 2024-02-14 07:18 | Outpatient (REF) | payer OTHER, SELFPAY ==
[2024-02-14 10:11] LABS: MANUAL DIFF FLAG NO
[2024-02-14 10:20] LABS: Basophils Absolute Auto 0.1 X10*3/uL (0.0-0.2); Basophils Percent Auto 1.6 % (0-2); Eosinophils Absolute Auto 0.7 X10*3/uL (0.0-0.4); Eosinophils Percent Auto 12.8 % (0-4); Hematocrit 38.3 % (37.0-47.0); Hemoglobin 12.9 g/dl (12.0-16.0); Imm Gran Abs Auto 0.01 X10*3/uL (0.00-0.03); Imm Gran Pct Auto 0.2 % (0.0-0.4); Lymphocytes Absolute Auto 1.7 X10*3/uL (1.2-4.9); Lymphocytes Percent Auto 32.6 % (20-40); Mean Corpuscular HGB Conc 33.7 g/dl (31.0-35.0); Mean Corpuscular Hemoglobin 31.9 pg (27.0-33.0); Mean Corpuscular Volume 94.8 fL (80.0-98.0); Mean Platelet Volume 10.2 fL (9.4-12.3); Monocytes Absolute Auto 0.4 X10*3/uL (0.1-1.2); Monocytes Percent Auto 8.5 % (2-11); Neutrophils Absolute Auto 2.2 x10*3/uL (2.0-8.3); Neutrophils Percent Auto 44.3 % (45-73); Platelet Count 254 X10*3/uL (160-400); Red Blood Count 4.04 X10*6/uL (4.20-5.50); Red Cell Distribution Width 14.5 % (11.0-16.0); White Blood Count 5.1 X10*3/uL (4.8-10.8)
[2024-02-14 10:46] LABS: Alanine Aminotransferase 26 U/L (0-31); Albumin Level 3.9 g/dL (3.5-5.0); Alkaline Phosphatase 83 U/L (39-117); Anion Gap 10 (12-20); Aspartate Amino Transferase 25 U/L (5-31); Bilirubin Total 0.4 mg/dL (0.0-1.0); Blood Urea Nitrogen 11 mg/dL (9-16); Calcium 8.5 mg/dL (8.4-10.2); Carbon Dioxide 25 mmol/L (22-29); Chloride 108 mmol/L (96-108); Cholesterol 165 mg/dL (<200); Estimated Glomerular Filt Rate > 60; Glucose Fasting 112 mg/dL (60-99); HDL Cholesterol 50 mg/dL (>40); LDL Cholesterol Calculated 102 mg/dL (<100); Sodium 139 mmol/L (135-145); Total Protein 6.4 g/dL (6.5-8.0); Triglycerides 67 mg/dL (<150)
[2024-02-14 10:47] LABS: Appearance Urine Clear; Color Urine Yellow; Glucose Urine UA Negative (Negative); Leukocyte Esterase Urine Negative (Negative); Nitrite Urine Negative (Negative); Specific Gravity - Urine 1.025 (1.005-1.025); UMIC TRIGGER UACC YES; Urine Blood Large (3+) (Negative); Urine Ketones Negative (Negative); Urine Protein Negative (Neg-Trace)
[2024-02-14 10:52] LABS: Bacteria Urine None Seen (None Seen); Hyaline Casts Urine 0-2 /LPF (0-2); RBC Urine >20 /HPF (0-2); WBC Urine 0-5 /HPF (0-5)
[2024-02-14 11:23] LABS: TSH reflex Free T4 2.43 uIU/mL (0.32-4.0)
== END 2024-02-14 07:19 | disposition home or self-care (01) ==
LOC: HO.HMGCLDS 07:18
PROVIDERS: PCP Nurse Practitioner Family; Visit Provider Nurse Practitioner Family
DX: Z00.00 Encounter for general adult medical examination without abnormal findings (principal)
CPT/HCPCS: 36415; 80053; 80061; 81001; 84443; 85025

== ENCOUNTER 2024-02-16 08:08 | Outpatient (AMB) | payer OTHER, SELFPAY ==
--- NOTE | 2024-02-16 08:13 | MHC.PC.OV ---
Vital Signs 02/16/24 08:14 Height 5 ft 1 in Weight 174 lb BMI 32.9 BP 134/80 Blood Pressure Location Rt brachial Position Sitting Pulse 105 H Pulse Source Pulse Oximeter Pulse Oximetry (%) 98 Oxygen Delivery Method Room Air Intake Visit Reasons: Diabetes F/u Intake Note: Pt is here today for her f/u DM Allergies No Known Allergies Allergy (Verified 02/16/24 08:21) Medication List - Last Reconciled 02/16/24 by DYLAN Contreras albuterol sulfate 90 mcg/actuation (ProAir HFA) 1 puff inhalation QID PRN dextroamphetamine-amphetamine 20 mg (Adderall) 15 mg PO TID labetalol 100 mg PO BID mupirocin 2% 1 appl topical BID 30 days Tobacco use date assessed: 05/10/23 Dental Screening Dental Screen Date: 02/16/24 Did you have a dental visit in the last 12 months?: No Did you have a dental problem in the last 6 months where you did not have access to dental care?: No Was dental information given to patient?: Patient has dentist HPI Diabetes F/u HPI Details Pt has a hx of elevated fasting blood sugar. She did have gestational diabetes, gave over 1 year ago. A1C in office today is 5.0. Denies polyuria and neuropathy, does report polydipsia (intermittent). #2 blood noted with yesterday's UA, i have my period. [facility] Medical History Asthma HTN (hypertension) Surgical History History of tonsillectomy Family History Brother Substance use disorder Mental health disorder Maternal Uncle Substance use disorder Mental health disorder Paternal Uncle Substance use disorder Mental health disorder Father Substance use disorder Mental health disorder Prostate cancer Family/Other Mental health disorder Substance use disorder Social History Housing: Apartment Alcohol intake: current Alcohol intake frequency: a few times a week Alcohol type: hard liquor Patient Tobacco Use Status: Former Tobacco user Tobacco use type: Cigarette Years Smoked: 15 e-Cigarette/Vaping Use: Currently Using Second Hand Smoke Exposure: No service: No Current occupational status: employed 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 1. Little interest or pleasure in doing things: not at all 2. Feeling down, depressed, or hopeless: not at all 3. Trouble falling or staying asleep, or sleeping too much: several days 4. Feeling tired or having little energy: several days 5. Poor appetite or overeating: several days 6. Feeling bad about yourself - or that you are a failure or have let yourself or your family down: not at all 7. Trouble concentrating on things, such as reading the newspaper or watching television: not at all 8. Moving or speaking so slowly that other people could have noticed. Or the opposite - being so fidgety or restless that you have been moving around a lot more than usual: not at all 9. Thoughts that you would be better off or of hurting yourself in some way: not at all Total score: 3 Source: Developed by Drs. Jorge Mcgowan, Patricia Garcia, Troy Morfin and colleagues, with an educational shaista from [employer]. Thrive Questionnaire Date Thrive assessed: 05/10/23 I am a: Patient What is your living situation today?: I have a steady place to live Within the past 12 months, did the food you bought not last and you didn't have the money to get more?: Never true Within the past 12 months, did you worry whether your food would run out before you got money to buy more?: Never true Do you have trouble paying for medicines?: No Do you have trouble getting transportation to medical appointments?: No Do you have trouble paying your heating and electricity bill?: No Do you have trouble taking care of your child, family member or friend?: No Do you have trouble with day-to-day activities such as bathing, preparing meals, shopping, managing finances, etc.?: No Are you currently unemployed and looking for a job?: No Are you interested in more education?: No Please select the resources that you would like help with: None Currently or been in a relationship where the following occur: No concerns reported THRIVE Score: 0 AUDIT C Alcohol Use Questionnaire (AUDIT-C) 1. How often do you have a drink containing alcohol?: 2-3 times a week 2. How many drinks containing alcohol do you have on a typical day when you are drinking?: 1 or 2 3. How often do you have six or more drinks on one occasion?: Never Total Score: 3 CE-7 AMB Questionnaire CE-7 Date CE - 7 assessed: 05/10/23 Feeling nervous, anxious, or on edge: 2 = More than half the days Not being able to stop or control worryin = More than half the days Worrying too much about different things: 2 = More than half the days Trouble relaxin = Several days Being so restless that it is hard to sit still: 1 = Several days Becoming easily annoyed or irritable: 0 = Not at all Feeling afraid as if something awful might happen: 0 = Not at all Total CE-7 score (0-4 normal; 5-9 mild; 10-14 moderate; 15-21 severe): 8 Source: Developed by Drs. Jorge Mcgowan, Patricia Garcia, Troy Morfin and colleagues, with an educational shaista from [employer]. Review of Systems Const Reports as per HPI Physical exam (Primary Care) Vital Signs: Last Vital Signs Pulse 105 H 02/16/24 08:14 BP 134/80 02/16/24 08:14 Pulse Ox 98 02/16/24 08:14 Oxygen Delivery Method Room Air 02/16/24 08:14 BMI result Body Mass Index 32.9 Tobacco/Smoking Status: Tobacco use Status Tobacco use date assessed 05/10/23 02/16/24 08:16 Patient Tobacco Use Status Former Tobacco user 02/16/24 08:16 Tobacco use type Cigarette 02/16/24 08:16 e-Cigarette/Vaping Use Currently Using 02/16/24 08:16 PHQ-9: PHQ-9 Score PHQ-9: Total score 3 02/16/24 08:16 Thrive Assessment: Date of Thrive Assessment Date Thrive assessed 05/10/23 02/16/24 08:16 Currently or been in a relationship where the following occur: No concerns reported Const General: cooperative Orientation/consciousness: patient oriented x3 Resp Effort & Inspection: normal respiratory effort Auscultation: clear to auscultation bilaterally Cardio Rate: regular rate Rhythm: regular rhythm Heart sounds: S1 normal heart sound present, S2 normal heart sound present and Murmur heart sound present systolic Neuro General: patient oriented x3 Extrem Right lower extremity: no edema Left lower extremity: no edema Psych Appearance: grossly normal Mental Status: mental status grossly normal Speech and movement: Normal speech and movement present Affect: normal affect Attitude: cooperative Thought process: Normal thought process present Thought content: Normal thought content present Insight: Good insight present (Psych) Judgement: Good judgement present (Psych) Results AMB Hemoglobin A1c AMB Hemoglobin A1c 5.0 % Last Edit by Florecita Parker CMA on 02/16/24 08:27 Coding Level of Care Code Est Pt Level 3 (34001) Diagnoses Elevated fasting blood sugar R73.01 Microscopic hematuria R31.29 Systolic murmur R01.1 Assessment & Plan Assessment & Plan (1) Elevated fasting blood sugar: Code(s): R73.01 - Impaired fasting glucose Category: Medical Plan: A1C done in office (5.0), pt encouraged to watch her diet. (2) Microscopic hematuria: Code(s): R31.29 - Other microscopic hematuria Category: Medical Plan: menses during last UA (3) Systolic murmur: Code(s): R01.1 - Cardiac murmur, unspecified Category: Medical Plan: echo ordered Plan The patient agreed to the use of a medical care evaluation specialist for this encounter. Scribed for DYLAN Qureshi by Alia Joe medical care evaluation specialist, on 02/16/2024 at 08:20 EST. Orders: Orders AMB Hemoglobin A1c Today Z13.9 - Encounter for screening, unspecified Complete Blood Count Auto Diff Today R73.01 - Impaired fasting glucose Comprehensive [place]. Panel Fast Today R73.01 - Impaired fasting glucose CA echo transthoracic complete Today R01.1 - Cardiac murmur, unspecified Medications: New albuterol sulfate 90 mcg/actuation 1 puff inhalation QID PRN 8.5 grams 2RF shortness of breath or wheezing Refilled labetalol 100 mg PO BID 180 tabs 1RF Discontinued albuterol sulfate 90 mcg/actuation (ProAir HFA) Discontinued Reason: Doctor's Order 1 puff inhalation QID PRN 8.5 grams 3RF shortness of breath or wheezing
[2024-02-16 08:14] VITALS: BP 134/80; PULSE 105; O2SAT 98; BMI 32.9
== END 2024-02-16 08:44 | disposition home or self-care (01) ==
PROVIDERS: PCP Nurse Practitioner Family; Visit Provider Nurse Practitioner Family
DX: R73.01 Impaired fasting glucose (principal); R31.29 Other microscopic hematuria; R01.1 Cardiac murmur, unspecified; Z13.9 Encounter for screening, unspecified

== ENCOUNTER → 2024-02-16 08:08 | Outpatient (BNVA) | payer OTHER, SELFPAY | PROVIDERS: PCP Nurse Practitioner Family; Visit Provider Nurse Practitioner Family | DX: R73.01 Impaired fasting glucose (principal); R31.29 Other microscopic hematuria; R01.1 Cardiac murmur, unspecified | CPT/HCPCS: 83036; 96127 ==

== ENCOUNTER 2024-05-19 06:13 | Outpatient (REF) | payer OTHER, SELFPAY ==
[2024-05-19 09:53] LABS: MANUAL DIFF FLAG NO
[2024-05-19 10:03] LABS: Basophils Absolute Auto 0.1 X10*3/uL (0.0-0.2); Eosinophils Absolute Auto 0.4 X10*3/uL (0.0-0.4); Eosinophils Percent Auto 6.9 % (0-4); Hematocrit 40.3 % (37.0-47.0); Hemoglobin 13.6 g/dl (12.0-16.0); Imm Gran Abs Auto 0.01 X10*3/uL (0.00-0.03); Imm Gran Pct Auto 0.2 % (0.0-0.4); Lymphocytes Percent Auto 32.2 % (20-40); Mean Corpuscular HGB Conc 33.7 g/dl (31.0-35.0); Mean Corpuscular Hemoglobin 32.2 pg (27.0-33.0); Mean Corpuscular Volume 95.5 fL (80.0-98.0); Mean Platelet Volume 10.2 fL (9.4-12.3); Monocytes Absolute Auto 0.5 X10*3/uL (0.1-1.2); Monocytes Percent Auto 7.4 % (2-11); Neutrophils Absolute Auto 3.2 x10*3/uL (2.0-8.3); Neutrophils Percent Auto 52.3 % (45-73); Platelet Count 256 X10*3/uL (160-400); Red Blood Count 4.22 X10*6/uL (4.20-5.50); Red Cell Distribution Width 12.6 % (11.0-16.0); White Blood Count 6.1 X10*3/uL (4.8-10.8)
[2024-05-19 10:09] LABS: Appearance Urine Clear; Color Urine Yellow; Glucose Urine UA Negative (Negative); Leukocyte Esterase Urine Negative (Negative); Nitrite Urine Negative (Negative); PH 5.5 (5.0-9.0); Urine Blood Negative (Negative); Urine Ketones Negative (Negative); Urine Protein Negative (Neg-Trace)
[2024-05-19 10:23] LABS: Alanine Aminotransferase 25 U/L (0-31); Alkaline Phosphatase 92 U/L (39-117); Anion Gap 11 (12-20); Aspartate Amino Transferase 24 U/L (5-31); Bilirubin Total 0.3 mg/dL (0.0-1.0); Blood Urea Nitrogen 11 mg/dL (9-16); Calcium 8.9 mg/dL (8.4-10.2); Carbon Dioxide 25 mmol/L (22-29); Chloride 104 mmol/L (96-108); Estimated Glomerular Filt Rate > 60; Glucose Fasting 140 mg/dL (60-99); Potassium 3.8 mmol/L (3.3-5.1); Sodium 136 mmol/L (135-145); Total Protein 6.7 g/dL (6.5-8.0)
== END 2024-05-19 06:14 | disposition home or self-care (01) ==
LOC: HO.HMGCLDS 06:13
PROVIDERS: PCP Nurse Practitioner Family; Visit Provider Nurse Practitioner Family
DX: Z00.00 Encounter for general adult medical examination without abnormal findings (principal); R73.01 Impaired fasting glucose
CPT/HCPCS: 36415; 80053; 81003; 85025

== ENCOUNTER 2024-05-22 08:55 | Outpatient (AMB) | payer OTHER, SELFPAY ==
[2024-05-22 08:59] VITALS: BP 122/80; PULSE 99; TEMP 37.1; O2SAT 98; BMI 33.6
--- NOTE | 2024-05-22 08:59 | A.OFFPC_ITS ---
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 Required: No Accompanied by: Self / Same As Patient Allergies No Known Allergies Allergy (Verified 05/22/24 09:23) Medication List - Last Reconciled 05/22/24 by Anthony Soriano [facility] albuterol sulfate 90 mcg/actuation 1 puff inhalation QID PRN bupropion HCl SR 150 mg PO DAILY dextroamphetamine-amphetamine 15 mg PO 3XD labetalol 100 mg PO BID mupirocin 2% 1 appl topical BID 30 days Tobacco use date assessed: 05/22/24 Dental Screening Dental Screen Date: 05/22/24 Did you have a dental visit in the last 12 months?: Yes Did you have a dental problem in the last 6 months where you did not have access to dental care?: No Was dental information given to patient?: Patient has dentist HPI Annual PE HPI Details History of Present Illness The patient is a 34-year-old female presenting for a physical examination. Notably, she has an elevated fasting blood sugar, which was identified in her latest laboratory workup. The patient attributes this elevation to consumption of coffee with sweetened creamer prior to the lab work, rather than a fasting state. She had no prior episodes documented nor treatment interventions for hyperglycemia. There is a systolic heart murmur first detected during this visit, with no prior history of cardiac murmurs or cardiac evaluations. The patient's obesity is a chronic issue, but interventions or treatments for weight management were not discussed in detail in this visit. There were no complaints of chest pain, shortness of breath, constipation, diarrhea, suicidal ideation, homicidal ideation, fevers, or chills at this visit. Health Maintenance - Discussed plan to retest fasting blood sugar in two months under fasting conditions. - Initiated weight management discussion s due to obesity. - No immunizations or screening tests di scussed. Social History Review of Systems - Psychiatric: Denies suicidal ideation, homicidal ideation. - General: Denies fevers, chills. - Cardiovascular: Denies chest pain. - Respiratory: Denies shortness of breat h. - Gastrointestinal: Denies constipation, diarrhea. Physical Exam General: Patient is obese Orientation: Patient oriented x3 Limitations: No limitations Head: Normal to inspection Ears: Hearing grossly normal bilaterally Nose: Normal external nose present Face and sinus: Normal facial exam Eyes: Appearance normal, both eyes and all related structures Neck: Normal visual inspection and Yes full ROM Respiratory: Normal respiratory effort and able to speak in complete sentences. Clear to auscultation bilaterally Cardiovascular: Regular rate and rhythm. Normal S1 and S2, faint systolic murmur GI: Normal to inspection. Soft to palpation and nontender Skin: No rashes or lesions noted, onychomyocosis noted to bilat big toenails Neuro: Patient oriented x3 Extremities: Normal to inspection Results - Labs: Elevated fasting blood sugar Plan Patient was informed and verbally consented to the use of an ambient scribe for clinic note documentation during this visit. Discussion Notes Today, I discussed with the patient the importance of fasting before her blood work and the impact of consuming coffee with sweetened creamer on fasting blood sugar levels. We agreed to repeat the blood sugar test under correct fasting conditions in two months. 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 - Engage in lifestyle and dietary change s to address weight management. - Monitor for any new symptoms such as c hest pain or shortness of breath and report any such occurrences promptly. [facility] Medical History Asthma HTN (hypertension) Surgical History History of tonsillectomy Family History Brother Substance use disorder Mental health disorder Maternal Uncle Substance use disorder Mental health disorder Paternal Uncle Substance use disorder Mental health disorder Father Substance use disorder Mental health disorder Prostate cancer Family/Other Mental health disorder Substance use disorder Social History Housing: Apartment Alcohol intake: current Alcohol intake frequency: a few times a week Alcohol type: hard liquor Patient Tobacco Use Status: Former Tobacco user Tobacco use type: Cigarette Years Smoked: 15 e-Cigarette/Vaping Use: Currently Using Second Hand Smoke Exposure: No service: No Current occupational status: employed 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 1. Little interest or pleasure in doing things: not at all 2. Feeling down, depressed, or hopeless: several days 3. Trouble falling or staying asleep, or sleeping too much: more than half the days 4. Feeling tired or having little energy: several days 5. Poor appetite or overeating: not at all 6. Feeling bad about yourself - or that you are a failure or have let yourself or your family down: not at all 7. Trouble concentrating on things, such as reading the newspaper or watching television: several days 8. Moving or speaking so slowly that other people could have noticed. Or the opposite - being so fidgety or restless that you have been moving around a lot more than usual: not at all 9. Thoughts that you would be better off or of hurting yourself in some way: not at all Total score: 5 Depression Screening Interpretation: Negative Depression Screening Done: Yes 23693 - PHQ-9 Billing: Yes Source: Developed by Drs. Jorge Mcgowan, Patricia Garcia, Troy Morfin and colleagues, with an educational shaista from [employer]. Thrive Questionnaire Date Thrive assessed: 05/22/24 I am a: Patient What is your living situation today?: I have a steady place to live Within the past 12 months, did the food you bought not last and you didn't have the money to get more?: Never true Within the past 12 months, did you worry whether your food would run out before you got money to buy more?: Never true Do you have trouble paying for medicines?: No Do you have trouble getting transportation to medical appointments?: No Do you have trouble paying your heating and electricity bill?: No Do you have trouble taking care of your child, family member or friend?: No Do you have trouble with day-to-day activities such as bathing, preparing meals, shopping, managing finances, etc.?: No Are you currently unemployed and looking for a job?: No Are you interested in more education?: No Please select the resources that you would like help with: None Currently or been in a relationship where the following occur: No concerns reported THRIVE Score: 0 AUDIT C Alcohol Use Questionnaire (AUDIT-C) 1. How often do you have a drink containing alcohol?: 2-3 times a week 2. How many drinks containing alcohol do you have on a typical day when you are drinking?: 1 or 2 3. How often do you have six or more drinks on one occasion?: Never Total Score: 3 Score Reviewed/Action Taken: Yes CE-7 AMB Questionnaire CE-7 Date CE - 7 assessed: 05/22/24 Feeling nervous, anxious, or on edge: 2 = More than half the days Not being able to stop or control worryin = Several days Worrying too much about different things: 1 = Several days Trouble relaxin = Nearly every day Being so restless that it is hard to sit still: 1 = Several days Becoming easily annoyed or irritable: 1 = Several days Feeling afraid as if something awful might happen: 2 = More than half the days Total CE-7 score (0-4 normal; 5-9 mild; 10-14 moderate; 15-21 severe): 11 Source: Developed by Drs. Jorge Mcgowan, Patricia Garcia, Troy Morfin and colleagues, with an educational shaista from [employer]. CE-7 Assessment Billing CE-7 Assessment Tool: CE-7 Assessment 40383 (has a psychiatrist/therapist, denies any si or hi) Physical exam (Primary Care) Vital Signs: Last Vital Signs Temp 98.7 F 05/22/24 08:59 Pulse 99 05/22/24 08:59 BP 122/80 05/22/24 08:59 Pulse Ox 98 05/22/24 08:59 Oxygen Delivery Method Room Air 05/22/24 08:59 BMI result Body Mass Index 33.6 Tobacco/Smoking Status: Tobacco use Status Tobacco use date assessed 05/22/24 05/22/24 09:01 Patient Tobacco Use Status Former Tobacco user 05/22/24 09:01 Tobacco use type Cigarette 05/22/24 09:01 e-Cigarette/Vaping Use Currently Using 05/22/24 09:01 PHQ-9: PHQ-9 Score PHQ-9: Total score 5 05/22/24 09:01 Depression Screening Interpretation: Negative Thrive Assessment: Date of Thrive Assessment Date Thrive assessed 05/22/24 05/22/24 09:01 Currently or been in a relationship where the following occur: No concerns reported Coding Level of Care Code Est Pt Prev Care 18-39y(61433) Diagnoses Elevated fasting blood sugar R73.01 Physical exam Z00.00 Onychomycosis B35.1 Additional Codes PHQ-9 - 20726 - PHQ-9 Billing: Yes ([id number]) CE-7 Assessment Billing - CE-7 Assessment Tool: CE-7 Assessment [id number] ([id number]) Assessment & Plan Assessment & Plan (1) Elevated fasting blood sugar: Code(s): R73.01 - Impaired fasting glucose Category: Medical (2) Physical exam: Code(s): Z00.00 - Encounter for general adult medical examination without abnormal findings Category: Medical (3) Onychomycosis: Code(s): B35.1 - Tinea unguium Category: Medical Plan . Orders: Orders Comprehensive [place]. Panel Fast Today R73.01 - Impaired fasting glucose Referrals Podiatry Referral B35.1 - Tinea unguium
== END 2024-05-22 09:36 | disposition home or self-care (01) ==
PROVIDERS: PCP Nurse Practitioner Family; Visit Provider Nurse Practitioner Family
DX: R73.01 Impaired fasting glucose (principal); Z00.00 Encounter for general adult medical examination without abnormal findings; B35.1 Tinea unguium

== ENCOUNTER → 2024-05-22 08:55 | Outpatient (BNVA) | payer OTHER, SELFPAY | PROVIDERS: PCP Nurse Practitioner Family; Visit Provider Nurse Practitioner Family | DX: Z00.00 Encounter for general adult medical examination without abnormal findings (principal); R73.01 Impaired fasting glucose; B35.1 Tinea unguium | CPT/HCPCS: 96127 ==